=== PATIENT | male | born 1955 | race Caucasian/White ===

== ENCOUNTER 2019-03-14 04:37 | Emergency (ER) | payer MEDICARE, SELFPAY ==
[2019-03-14 04:40] VITALS: BP 164/108; PULSE 74; RESP 22; TEMP 36.6; O2SAT 95; BMI 30.9
--- NOTE | 2019-03-14 05:00 | W.ED.EPISTAX ---
HPI - Epistaxis General: Chief complaint: General Medical Stated complaint: NOSE BLEED Time Seen by Provider: 03/14/19 04:46 History of Present Illness: MD complaint: epistaxis Location: left nostril Onset (ago): hour(s) Duration: constant Context: aspirin use Associated symptoms: Reports no associated symptoms; Deny fever(s), headache(s), sinus pain or vomiting Treatment prior to arrival: nose pinching Review of Systems Const: Denies: fever or chills Eyes: Denies: change in vision or blurry vision ENMT: Reports: nose bleeds; Denies: painful swallowing, swelling of lips/tongue, bleeding gums, dental pain, Change in hearing, post nasal drip or facial/sinus pain Card: Denies: chest pain, palpitations, irregular heart rhythm, edema, swelling of feet/ankles, shortness of breath on exertion or shortness of breath when lying down Resp: Denies: shortness of breath, productive cough, non-productive cough or wheezing GI: Denies: abdominal pain, nausea, vomiting, rectal pain, blood in stool or black tarry stool Neuro: Denies: headache, dizziness, vertigo, confusion or seizure-like activity Psych: Denies: anxiety, visual hallucinations or auditory hallucinations PFSH ED PFSH: Statuses (acute, chronic, etc) shown below reflect problem list status as previously entered and may not be historically accurate Social History Smoking and tobacco status: current every day smoker Physical Exam Const: COMMON NORMALS: alert GENERAL APPEARANCE: well developed ORIENTATION/CONSCIOUSNESS: Yes awake, Yes oriented to person, Yes oriented to place and Yes oriented to time HENMT: COMMON NORMALS: normocephalic, external ears normal, external nose normal and moist oral mucous membranes HEAD & SCALP: normocephalic; no scalp tenderness FACE & SINUS: normal facial exam NOSE: external nose normal and epistaxis on the left; nasal discharge EXTERNAL EAR: Yes external ears normal MOUTH: tongue normal TEETH & GINGIVA: no abnormal tooth and associated gingiva THROAT: posterior oropharynx normal; no peritonsillar mass Eye: COMMON NORMALS: PERRL, EOMs intact bilaterally and conjunctivae normal EYELID: eyelids normal CONJUNCTIVA: Yes conjunctivae normal PUPIL: Yes PERRL Chest: COMMONS NORMALS: inspection of chest normal CHEST: Yes symmetrical chest wall rise and No tenderness Resp: COMMON NORMALS: clear to auscultation bilaterally EFFORT & INSPECTION: No tachypneic, No respiratory distress, No retractions, No uses accessory muscles and No tracheal deviation AUSCULTATION: clear to auscultation bilaterally, no rhonchi, no wheezes and lung sounds not diminished Cardio: COMMON NORMALS: negative for regular rate and negative for regular rhythm RATE: abnormal rate RHYTHM: abnormal rhythm and abnormal rhythm irregularly irregular HEART SOUNDS: no murmurs PERIPHERAL PULSES: radial pulses present : COMMON NORMALS: Yes no CVA tenderness BLADDER/KIDNEY EXAM: Yes no CVA tenderness Back/Pelvis: COMMON NORMALS: no CVA tenderness PELVIS: Yes no pain with anterior-posterior compression and Yes no pain with lateral compression Neuro: SENSORIUM/ORIENTATION: Yes alert, Yes oriented to person, Yes oriented to place and Yes oriented to time Psych: COMMON NORMALS: mental status grossly normal and speech normal SPEECH: Yes normal speech Skin: COMMON NORMALS: no rashes or lesions noted GENERAL SKIN EXAM: no rashes or lesions noted Course ED course: 63-year-old male with a nosebleed. He presents hypertensive, and bleeding from the left nare. Afrin, and aggressive pressure, have stopped the bleeding. On exam, he was found to have an irregular heartbeat. He is on the monitor now, showing atrial fibrillation. His rate is controlled. Obviously he is not a candidate for anticoagulation at this point. He will go home to follow-up as an outpatient regarding further work-up of his atrial fibrillation. Vital Signs: Vital signs: Vital Signs Temperature 97.8 F 03/14/19 04:40 Pulse Rate 70 03/14/19 05:43 Respiratory Rate 16 03/14/19 05:43 Blood Pressure 135/85 03/14/19 05:43 Pulse Oximetry 90 03/14/19 05:43 MDM - Epistaxis Lab Data: Labs: Lab Results 03/14/19 03/14/19 03/14/19 Range/Units 06:14 06:14 06:14 WBC 17.7 H (4.0-10.0) 10^3/ uL RBC 5.61 H (4.1-5.3) 10^6/u L Hgb 17.7 H (11.7-16.6) g/dL Hct 52.0 (42.0-52.0) % MCV 92.7 (80-94) fL MCH 31.6 (28.0-34.0) pg MCHC 34.0 (30.0-36.0) g/dL RDW 13.2 (12.1-15.1) % Plt Count 338 (130-400) 10^3/c mm MPV 9.2 (7.4-10.4) fL Neut % (Auto) 78.3 % Lymph % (Auto) 12.3 % [place] % (Auto) 8.3 % Eos % (Auto) 0.3 % Baso % (Auto) 0.4 % Neut # (Auto) 13.9 H (1.8-7.7) 10^3/u L Lymph # (Auto) 2.2 (0.8-4.8) 10^3/u L [place] # (Auto) 1.5 H (0.2-0.9) 10^3/u L Eos # (Auto) 0.1 (0.0-0.8) 10^3/u L Baso # (Auto) 0.1 (0.0-0.1) 10^3/u L Nucleated RBC % (a uto) 0 % Nucleated RBCs # 0.0 /100WBC PT 14.20 H (10.5-13.3) SECO NDS INR 1.07 (0.8-1.2) APTT 25.1 (23.9-36.7) SECO NDS Sodium 138 (136-145) mmol/L Potassium 3.5 (3.5-5.1) mmol/L Chloride 102 (98-107) mmol/L Carbon Dioxide 24 (22-29) mmol/L Anion Gap 15.5 (5-19) BUN 13 (8-23) mg/dL Creatinine 0.6 L (0.7-1.2) mg/dL GFR Calculation 135.2 H (90-130) mL/min Glucose 117 H (74-106) mg/dL Calcium 9.5 (8.8-10.2) mg/Dl Troponin T Baselin e (0-15) ng/mL 03/14/19 Range/Units 06:14 WBC (4.0-10.0) 10^3/ uL RBC (4.1-5.3) 10^6/u L Hgb (11.7-16.6) g/dL Hct (42.0-52.0) % MCV (80-94) fL MCH (28.0-34.0) pg MCHC (30.0-36.0) g/dL RDW (12.1-15.1) % Plt Count (130-400) 10^3/c mm MPV (7.4-10.4) fL Neut % (Auto) % Lymph % (Auto) % [place] % (Auto) % Eos % (Auto) % Baso % (Auto) % Neut # (Auto) (1.8-7.7) 10^3/u L Lymph # (Auto) (0.8-4.8) 10^3/u L [place] # (Auto) (0.2-0.9) 10^3/u L Eos # (Auto) (0.0-0.8) 10^3/u L Baso # (Auto) (0.0-0.1) 10^3/u L Nucleated RBC % (a uto) % Nucleated RBCs # /100WBC PT (10.5-13.3) SECO NDS INR (0.8-1.2) APTT (23.9-36.7) SECO NDS Sodium (136-145) mmol/L Potassium (3.5-5.1) mmol/L Chloride (98-107) mmol/L Carbon Dioxide (22-29) mmol/L Anion Gap (5-19) BUN (8-23) mg/dL Creatinine (0.7-1.2) mg/dL GFR Calculation (90-130) mL/min Glucose (74-106) mg/dL Calcium (8.8-10.2) mg/Dl Troponin T Baselin e 9 (0-15) ng/mL Discharge Plan Discharge Patient Disposition: Home, Self-Care Clinical Impression: Acute anterior epistaxis Atrial fibrillation Qualifiers: Atrial fibrillation type: unspecified Qualified Code(s): I48.91 - Unspecified atrial fibrillation Condition: Stable Prescriptions: No Action sertraline 100 mg Tablet 100 mg PO DAILY RF: 0 amlodipine 5 mg Tablet 5 mg PO DAILY RF: 0 telmisartan 80 mg Tablet 80 mg PO DAILY RF: 0 hydrochlorothiazide 12.5 mg Capsule 12.5 mg PO DAILY RF: 0 lovastatin 20 mg Tablet 20 mg PO QPM RF: 0 omeprazole 20 mg Tablet,Delayed Release (Dr/Ec) 20 mg PO DAILY RF: 0 Adult Low Dose Aspirin 81 mg Tablet,Delayed Release (Dr/Ec) 81 mg PO DAILY RF: 0 Discharge Orders: Discharge Order (Routine); Ordered 03/14/19 Ordered By: Casey Soni Referrals: Zach Doss NP [Primary Care Provider] - Discharge Diet: Usual diet Discharge Activity: Increase activity as tolerated Patient Instructions: Atrial Fibrillation (ED), Epistaxis (ED) Activity Restrictions/Additional Instructions: Check your blood pressure often to make sure it is staying controlled. Follow-up with your physician regarding your irregular heartbeat. A further work-up is needed. Humidifier while sleeping may help reduce the risk of nosebleeding. Return for repeated episodes of nosebleeding, chest discomfort, palpitations, other concerning symptoms. Stop your aspirin for now. Coding Level of Care Code ED Foam Charger for Rhina Patel
--- NOTE | 2019-03-14 05:02 | PC.NURSE ---
Pt states nose bleed started at 0300 and has not stopped. states several large blood clots have been expelled. Afrin @ bedside, physician administered. Suction used. Nose clamp applied but not effective.
[2019-03-14 05:43] VITALS: BP 135/85; PULSE 70; RESP 16; O2SAT 90
--- NOTE | 2019-03-14 06:02 | PC.NURSE ---
Per , pt has not been diagnosed with AFib in the past - physician notified, ekg obtained.
[2019-03-14 06:32] LABS: Basophils # 0.1 10^3/uL (0.0-0.1); Basophils % 0.4 %; Eosinophils # 0.1 10^3/uL (0.0-0.8); Eosinophils % 0.3 %; Hemoglobin 17.7 g/dL (11.7-16.6); Lymphocytes # 2.2 10^3/uL (0.8-4.8); Lymphocytes % 12.3 %; Mean Corpuscular Hemoglobin 31.6 pg (28.0-34.0); Mean Corpuscular Volume 92.7 fL (80-94); Mean Platelet Volume 9.2 fL (7.4-10.4); Monocytes # 1.5 10^3/uL (0.2-0.9); Monocytes % 8.3 %; Neutrophils # 13.9 10^3/uL (1.8-7.7); Neutrophils % 78.3 %; Nucleated Red Blood Cells % 0 %; Platelet Count 338 10^3/cmm (130-400); Red Blood Count 5.61 10^6/uL (4.1-5.3); Red Cell Distribution Width 13.2 % (12.1-15.1); White Blood Count 17.7 10^3/uL (4.0-10.0)
[2019-03-14 06:41] LABS: INR 1.07 (0.8-1.2)
[2019-03-14 06:42] LABS: Partial Thromboplastin Time 25.1 SECONDS (23.9-36.7)
[2019-03-14] MEDS: oxymetazoline 0.05% Nasal Spray 15 mL 2 SPRAY NOSTRIL-B (06:42)
[2019-03-14 06:47] LABS: Anion Gap 15.5 (5-19); Blood Urea Nitrogen 13 mg/dL (8-23); Calcium 9.5 mg/Dl (8.8-10.2); Carbon Dioxide 24 mmol/L (22-29); Chloride 102 mmol/L (98-107); Glomerular Filtration Rate 135.2 mL/min (90-130); Glucose 117 mg/dL (74-106); Potassium 3.5 mmol/L (3.5-5.1); Sodium 138 mmol/L (136-145); Troponin(5th) Baseline 9 ng/mL (0-15)
[2019-03-14 07:05] VITALS: BP 121/94; PULSE 67; RESP 15; O2SAT 94
--- NOTE | 2019-03-14 07:47 | ECG_ITS ---
Measurements Intervals [place] Rate: 73 P: VT: 0 QRS: -40 QRSD: 92 T: 17 QT: 404 QTc: 447 ATRIAL FIBRILLATION WITH VENTRICULAR PREMATURE COMPLEXES LOW QRS VOLTAGE IN PRECORDIAL LEADS [QRS DEFLECTION < 1.0 mV IN CHEST LEADS] INFERIOR MYOCARDIAL INFARCTION [40+ ms Q WAVE AND/OR ST/T ABNORMALITY IN II/aVF], PROBABLY OLD WITH POSTERIOR EXTENSION [PROMIN No previous ECG available for comparison Electronically Signed On 03-14-2019 19:31:39 LEAD PRESSER by Myke Chen M.D. [email or web address]
== END 2019-03-14 07:06 | disposition home or self-care (01) ==
PROVIDERS: Emergency Provider Emergency Medicine; PCP Nurse Practitioner Family
DX: R04.0 Epistaxis (principal); I48.91 Unspecified atrial fibrillation; Z79.82 Long term (current) use of aspirin; F17.210 Nicotine dependence, cigarettes, uncomplicated
CPT/HCPCS: 36415; 80048; 84484; 85025; 85610; 85730; 93005; 99282

== ENCOUNTER 2019-03-18 12:51 | Outpatient (CLI) | payer MEDICARE, SELFPAY ==
--- NOTE | 2019-03-18 12:57 | XR_ITS ---
WS: [id number] CHEST 2 VIEWS HISTORY: BRONCHITIS ACUTE, COUGH COMPARISON: None available. Lungs: Mild hyperexpansion from emphysema. No pneumonia. Normal vasculature. No pleural effusion or p neumothorax. Cardiac size: Normal. Mediastinum/Aorta: Normal mediastinum. Bones: Normal. XR/XR chest 2V* [id number] IMPRESSION: Chronic emphysema. No acute cardiopulmonary disease.
== END 2019-03-18 12:52 | disposition home or self-care (01) ==
PROVIDERS: PCP Nurse Practitioner Family; Visit Provider Nurse Practitioner Family
DX: J43.9 Emphysema, unspecified (principal); J20.9 Acute bronchitis, unspecified; R05 Cough
CPT/HCPCS: 71046

== ENCOUNTER 2019-03-30 13:55 | Outpatient (CLI) | payer MEDICARE, SELFPAY ==
--- NOTE | 2019-03-30 14:02 | USCV_ITS ---
Zach Croft Age: 63 Gender: M : 1955 Exam Date: 03/30/2019 14:18 Ordering Phys: Zach Doss NP Technologist: Janeth Joy [place] [facility] [place]IB BP: 137 / 94 HR: 70 Rhythm: Atrial fibrillation Technical Quality: Adequate MEASUREMENTS (Male / Female) Normal Values 2D ECHO LV Diastolic Diameter PLAX 6.0 cm 4.2 - 5.9 / 3.9 - 5.3 cm LV Systolic Diameter PLAX 4.7 cm LV Chamber Size 5.3 cm IVS Diastolic Thickness 1.2 cm 0.6 - 1.0 / 0.6 - 0.9 cm IVS Systolic Thickness 1.6 cm LVPW Diastolic Thickness 0.9 cm 0.6 - 1.0 / 0.6 - 0.9 cm LVPW Systolic Thickness 1.9 cm RV Chamber Size 3.8 cm LVOT Diameter 2.0 cm LV Ejection Fraction 2D Teich 42.9 % LV Ejection Fraction MOD 2C 52.8 % LV Ejection Fraction 2C AL 52.7 % LA Diameter 5.2 cm LA Width 3.9 cm LA Height 5.8 cm RA Width 4.1 cm RA Height 5.7 cm M-MODE LV Diastolic Diameter MM 5.9 cm 4.2 - 5.9 / 3.9 - 5.3 cm LV Systolic Diameter MM 4.3 cm LV Ejection Fraction MM Teich 52.4 % IVS Diastolic Thickness MM 1.3 cm 0.6 - 1.0 / 0.6 - 0.9 cm IVS Systolic Thickness MM 1.4 cm LVPW Diastolic Thickness MM 0.7 cm 0.6 - 1.0 / 0.6 - 0.9 cm LVPW Systolic Thickness MM 1.1 cm Aortic Annulus Diameter 3.6 cm LA Ao Ratio MM 1.5 MV E Point Septal Separation 1.8 cm DOPPLER AV Peak Velocity 118.0 cm/s LVOT Peak Velocity 91.0 cm/s AV Area Cont Eq vti 2.5 cm squared AV Area Cont Eq pk 2.5 cm squared MV Area PHT 5.0 cm squared MV E' Velocity 6.0 cm/s Mitral E to MV E' Ratio 9.8 Mitral E to LV E' Lateral Ratio 14.9 Mitral E to LV E' Septal Ratio 7.4 TR Peak Velocity 195.6 cm/s TR Peak Gradient 15.3 mmHg TR Mean Velocity 148.0 cm/s TR Mean Gradient 9.6 mmHg TR Velocity Time Integral 47.5 cm TV Peak E Velocity 87.0 cm/s Right Atrial Pressure 3.0 mmHg Pulmonary Artery Systolic Pressu 18.3 mmHg PV Peak Velocity 55.0 cm/s FINDINGS Left Ventricle Normal left ventricular size and systolic function, EF 55 %. No regional wall motion abnormalities. Right Ventricle Normal right ventricular size and systolic function. Right Atrium Mildly increased right atrial size. Left Atrium Mildly increased left atrial size. Mitral Valve Thickened mitral valve. Trace mitral valve regurgitation. Aortic Valve Thickened aortic valve. Tricuspid Valve Mild tricuspid valve regurgitation. Pulmonic Valve Not visualized well Pericardium Normal pericardium without effusion. Aorta Normal ascending aorta dimension. CONCLUSIONS Normal left ventricular size and systolic function, EF 55 %. No regional wall motion abnormalities. Thickened mitral valve. Trace mitral valve regurgitation. Mild biatrial enlargement. Thickened aortic valve. Mild tricuspid valve regurgitation. Normal pulmonary artery peak systolic pressure. There is no pericardial effusion. There are no intracardiac masses. No previous study is available for comparison. Dr Myke Chen MD FACC (Electronically Signed) Final Date: 30 March 2019 18:19 S
== END 2019-03-30 13:56 | disposition home or self-care (01) ==
PROVIDERS: Family Provider Nurse Practitioner Family; Visit Provider Nurse Practitioner Family
DX: I05.9 Rheumatic mitral valve disease, unspecified (principal); I35.8 Other nonrheumatic aortic valve disorders; I07.1 Rheumatic tricuspid insufficiency; I48.91 Unspecified atrial fibrillation; I10 Essential (primary) hypertension
CPT/HCPCS: 93306

== ENCOUNTER 2020-12-20 11:09 | Emergency (ER) | payer MEDICARE, SELFPAY ==
[2020-12-20 11:19] VITALS: BP 136/93; PULSE 93; RESP 16; TEMP 36.6; O2SAT 98
--- NOTE | 2020-12-20 11:35 | ED_ITS ---
HPI - General Adult General: Chief complaint: General Medical Stated complaint: Nose Bleed Time Seen by Provider: 12/20/20 11:22 History of Present Illness: HPI narrative: 65-year-old male with a history of A. fib on Eliquis presents emergency room with complaints of 3 days of intermittent right-sided nosebleed. Patient says that he has applied pressure and attempted to stop the bleeding with paper plug in the nose however has noted 3 episodes of intermittent bleeding. Most recently, patient report ongoing bleeding since 4 AM this morning. Patient denies any lightheadedness, chest pain, shortness breath, abdominal complaints or complaints at this time. Denies any recent instrumentation in the nose or trauma. Onset: 3 days ago Duration: intermittently every 4 hrs Location:home Severity: moderate Review of Systems Narrative: Constitutional: No fever, no chills. HEENT: No vision changes, +R sided nose bleed CV: No chest pain, no palpitations PULM: no cough, no dyspnea. GI: No abdominal pain, no N/V/D. : No dysuria MSKEL: No muscle pain SKIN: No new rashes, no lesions. NEURO: No headache, no focal weakness. HEME: No visible bruises PSYCH: Normal mood PFSH ED PFSH: Medical History (Updated 12/20/20 @ 11:40 by Miranda Beth MD) Atrial fibrillation by electrocardiogram Hyperlipidemia Hypertension Family History Other Hypertension Social History Smoking and tobacco status: current every day smoker Alcohol intake: never Physical Exam Narrative: EXAM NARRATIVE: Head: Atraumatic Eyes: PERRL, conjunctiva without injection ENT: Mucous membrane moist, +dry blood in the R nare/no active source of bleeding currently upon removal of the plug NECK: Supple, ROM intact LUNGS: LCTAB, no crackles/rhonchi CV: RRR ABDOMEN: Soft, nontender in all quadrants EXTREMITY: Normal ROM SKIN: No rash or erythema NEURO: Awake and alert, no focal motor deficits PSYCH: Normal mood and affect Course Vital Signs: Vital signs: Vital Signs Temperature 98.2 F 12/20/20 12:05 Pulse Rate 90 12/20/20 12:05 Respiratory Rate 16 12/20/20 12:05 Blood Pressure 155/100 12/20/20 12:05 Pulse Oximetry 95 12/20/20 12:05 MDM - General Adult MDM Narrative: Medical decision making narrative: 65-year-old male presenting to the emergency room with concerns for intermittent nosebleed. On exam, patient is hemodynamically stable with noted dried blood in the right nare. Patient is not actively bleeding currently. Afrin and 1% lidocaine w/ epi plug were applied to the affected area. No signs of active bleeding currently. Disposition: Discharge. Patient counseled regarding diagnostic impression, treatment plan. Patient given ED strict return precautions to return for continuation, worsening, or development of new symptoms. Instructed to f/u w/ PCP regarding symptoms today. Patient verbalized understanding. Discharge Plan Discharge Patient Disposition: Home Clinical Impression: Epistaxis Condition: Stable Prescriptions: No Action omega-3 fatty acids 1,000 mg capsule 1,000 mg PO DAILY RF: 0 garlic 1,000 mg capsule 1,000 mg PO DAILY RF: 0 Eliquis 5 mg tablet 5 mg PO BID 30 Days Qty: 180 RF: 3 sertraline 100 mg Tablet 100 mg PO DAILY RF: 0 amlodipine 5 mg Tablet 5 mg PO DAILY RF: 0 telmisartan 80 mg Tablet 80 mg PO DAILY RF: 0 hydrochlorothiazide 12.5 mg Capsule 12.5 mg PO DAILY RF: 0 lovastatin 20 mg Tablet 20 mg PO QPM RF: 0 omeprazole 20 mg Tablet,Delayed Release (Dr/Ec) 20 mg PO DAILY RF: 0 Adult Low Dose Aspirin 81 mg Tablet,Delayed Release (Dr/Ec) 81 mg PO DAILY RF: 0 Discharge Orders: Discharge ED (Routine); Ordered 12/20/20 Ordered By: Miranda Beth Referrals: Zach Doss NP [Primary Care Provider] - Discharge Diet: Advance as tolerated Discharge Activity: Resume usual activity Patient Instructions: Nosebleed (ED) Activity Restrictions/Additional Instructions: Come back to the emergency room if you notice any worsening bleed, fever/chills, inability control the bleeding, lightheadedness, shortness of breath, or any new or concerning complaints. Coding Level of Care Code ED Assistant Director Of Public Works for Rhina Patel
[2020-12-20 12:05] VITALS: BP 155/100; PULSE 90; RESP 16; TEMP 36.8; O2SAT 95
== END 2020-12-20 13:50 | disposition home or self-care (01) ==
PROVIDERS: Emergency Provider Emergency Medicine; PCP Nurse Practitioner Family
DX: R04.0 Epistaxis (principal); Z79.01 Long term (current) use of anticoagulants; Z79.82 Long term (current) use of aspirin; I10 Essential (primary) hypertension; E78.5 Hyperlipidemia, unspecified; F17.210 Nicotine dependence, cigarettes, uncomplicated
CPT/HCPCS: 99281

== ENCOUNTER 2021-12-12 11:32 | Outpatient (CLI) | payer MEDICARE, SELFPAY ==
--- NOTE | 2021-12-12 11:40 | XR_ITS ---
WS: [id number] Lumbar spine, AP, lateral, L5-S1 spot, both obliques, 12/12/2021 Clinical Data: BACK PAIN, LUMBAR WITH RADICULOPATHY Comparison: None. Findings: No compression fractures or subluxation is seen. Degenerative disc narrowing at all levels from T12-L 1 through L5-S1 is seen. There are abundant osteoarthritic spurs from T12 through S1. The transverse processes and SI joints are normal. The oblique images show no spondylolysis. XR/XR lumbar spine min 4V [id number] Impression: 1. Multilevel degenerative disc narrowing. 2. Multilevel osteoarthritic spurring. 3. Negative for spondylolysis or spondylolisthesis.
--- NOTE | 2021-12-12 11:50 | XR_ITS ---
WS: [id number] Right hip, AP and frog-leg views, 12/12/2021 Clinical Data: HIP PAIN, RIGHT Comparison: None. Findings: No fractures or dislocations are seen. The right hip joint shows sclerosis of the acetabulum with a s pur of the medial aspect of the right femoral head. There is an acetabular lip. There are cystic medina ges of the right femoral head but no fragmentation.. The soft tissues are not remarkable. The adjacen t pelvis is normal. XR/XR hip RT 2-3V wo/w pel* [id number] Impression: Moderate osteoarthritis of right hip. Tonnis classification: grade 2: small cysts in femoral head/acetabulum or moder ate joint space narrowing or moderate loss of head sphericity
== END 2021-12-12 11:33 | disposition home or self-care (01) ==
LOC: RAD 11:34
PROVIDERS: PCP Nurse Practitioner Family; Visit Provider Nurse Practitioner Family
DX: M54.16 Radiculopathy, lumbar region (principal); M16.11 Unilateral primary osteoarthritis, right hip; M54.50 Low back pain, unspecified
CPT/HCPCS: 72110; 73502

== ENCOUNTER → 2022-01-08 08:55 | Outpatient (BNVA) | payer MEDICARE, SELFPAY | PROVIDERS: PCP Nurse Practitioner Family; Referring Provider Internal Medicine; Visit Provider Orthopaedic Surgery | DX: M16.11 Unilateral primary osteoarthritis, right hip (principal) | CPT/HCPCS: 99204 ==

== ENCOUNTER 2022-09-29 15:03 | Outpatient (CLI) | payer MEDICARE, SELFPAY ==
--- NOTE | 2022-09-29 15:16 | MR_ITS ---
WS: [id number] EXAMINATION: MR hip RT wo con* [id number] ORDER DATE: 09/29/2022 3:17 PM COMPARISON: None. HISTORY: R HIP PAIN CONTRAST: None. TECHNIQUE: Coronal STIR of the Pelvis. Coronal proton density, coronal T1, axial T2 fat sat, axial T1 , sagittal T2 fat sat, and sagittal T1 performed of the hip. FINDINGS: Moderate to advanced arthritis RIGHT hip with subchondral cystic change in the femoral head and aceta bulum. Hypertrophic changes about the femoral neck. No acute fractures. No evidence of avascular necr osis. Proximal femoral shaft appears normal. Hypertrophic spurring about the acetabulum. Small joint effusion. Visualized RIGHT pubic rami appear normal. Small fat-containing RIGHT inguinal hernia. MR/MR hip RT wo con* [id number] IMPRESSION: 1. Advanced degenerative arthritis RIGHT hip with subchondral cystic change an d edema in the femoral head. 2. Hypertrophic changes about the acetabulum and femoral neck. No acute fractu res. 3. Small joint effusion. 4. Small fat-containing RIGHT inguinal hernia.
--- NOTE | 2022-09-29 15:16 | MR_ITS ---
WS: [id number] EXAMINATION: MR hip LT wo con* [id number] ORDER DATE: 09/29/2022 3:17 PM COMPARISON: None. HISTORY: L HIP PAIN CONTRAST: None. TECHNIQUE: Coronal STIR of the Pelvis. Coronal proton density, coronal T1, axial T2 fat sat, axial T1 , sagittal T2 fat sat, and sagittal T1 performed of the hip. FINDINGS: Moderate to advanced arthritis both hips with subchondral cystic change and edema in the femoral head s. Joint space narrowing LEFT hip. No evidence of avascular necrosis. Joint space narrowing with subc hondral cystic change involving the LEFT femoral head and adjacent acetabulum. Mild edema in the femo ral head. No acute fractures. Proximal femoral shaft appears intact. Normal bone marrow signal in the bony pelvis and sacrum. Norm al visualized pubic rami. No sacral insufficiency fractures. Fat-containing LEFT inguinal hernia. A f ew incidental LEFT inguinal lymph nodes. MR/MR hip LT wo con* [id number] IMPRESSION: 1. Moderate to advanced osteoarthritis LEFT hip with subchondral cystic change and mild edema in the femoral head. 2. No evidence of avascular necrosis or femoral head collapse. Hypertrophic ch anges about the femoral neck. 3. Normal bone marrow signal in the bony pelvis and sacrum. 4. Fat-containing LEFT inguinal hernia.
== END 2022-09-29 15:04 | disposition home or self-care (01) ==
PROVIDERS: PCP Nurse Practitioner Family; Visit Provider Nurse Practitioner Family
DX: M25.552 Pain in left hip (principal); M25.551 Pain in right hip
CPT/HCPCS: 73721

== ENCOUNTER 2023-03-11 09:03 | Outpatient (CLI) | payer MEDICARE, SELFPAY ==
--- NOTE | 2023-03-11 09:12 | CT_ITS ---
WS: [id number] LDCT LUNG CANCER SCREENING TECHNIQUE: Noncontrast CT of the chest with coronal and sagittal reformatted images. CLINICAL INFORMATION: NICOTINE DEPENDENCE, CIGARETTES COMPARISON: None. DLP: 94.89 mGy.cm DIvol: Mean CTDIvol: 1.90 (mGy) All CT scans at [facility] use at least one of these dose optimization techniques: automat ed exposure control; mA and/or kV adjustment per patient size (includes targeted exams where dose is matched to clinical indication); or iterative reconstruction. FINDINGS: Moderate to advanced chronic emphysematous changes. Tiny noncalcified nodule RIGHT middle l obe. Nodularity along the RIGHT minor fissure. Bibasilar atelectasis. Tree-in-bud nodularity in the R IGHT middle lobe likely inflammatory. Slight bibasilar atelectasis. Normal caliber thoracic aorta. Coronary calcification. No mediastinal or hilar lymphadenopathy. No ax illary lymphadenopathy. Adrenal glands are normal. Tiny esophageal hiatal hernia. Small LEFT renal cy st. Moderate thoracic kyphosis. Loose bodies in the calcified subcoracoid bursa. IMPRESSION: CT/CT lung screening [id number] LUNG-RADS: 2-Benign Appearance or Behavior FOLLOW UP: 12 Month: Continue annual screening with LDCT
== END 2023-03-11 09:04 | disposition home or self-care (01) ==
LOC: RAD 09:04
PROVIDERS: PCP Nurse Practitioner Family; Visit Provider Family Medicine
DX: Z12.2 Encounter for screening for malignant neoplasm of respiratory organs (principal); F17.210 Nicotine dependence, cigarettes, uncomplicated
CPT/HCPCS: 71271

== ENCOUNTER → 2023-03-12 14:59 | Outpatient (BNVA) | payer MEDICARE, SELFPAY | PROVIDERS: PCP Nurse Practitioner Family; Visit Provider Internal Medicine Cardiovascular Disease | DX: R07.9 Chest pain, unspecified (principal); M16.11 Unilateral primary osteoarthritis, right hip; F17.200 Nicotine dependence, unspecified, uncomplicated; R94.31 Abnormal electrocardiogram [ECG] [EKG] | CPT/HCPCS: 93005; 99204 ==

== ENCOUNTER → 2023-09-14 15:16 | Outpatient (BNVA) | payer MEDICARE, SELFPAY | PROVIDERS: PCP Nurse Practitioner Family; Visit Provider Internal Medicine Cardiovascular Disease | DX: I48.91 Unspecified atrial fibrillation (principal); Z79.01 Long term (current) use of anticoagulants; I10 Essential (primary) hypertension; E78.2 Mixed hyperlipidemia; M16.11 Unilateral primary osteoarthritis, right hip; Z72.0 Tobacco use | CPT/HCPCS: 99214 ==

== ENCOUNTER → 2024-04-05 09:41 | Outpatient (BNVA) | payer MEDICARE, SELFPAY | PROVIDERS: PCP Nurse Practitioner Family; Visit Provider Nurse Practitioner Family | DX: I48.91 Unspecified atrial fibrillation (principal); I10 Essential (primary) hypertension; E78.2 Mixed hyperlipidemia; F17.200 Nicotine dependence, unspecified, uncomplicated; Z79.01 Long term (current) use of anticoagulants | CPT/HCPCS: 99214 ==

== ENCOUNTER → 2024-07-21 14:53 | Outpatient (BNVA) | payer MEDICARE, SELFPAY | PROVIDERS: PCP Nurse Practitioner Family; Referring Provider Family Medicine; Visit Provider Nurse Practitioner Family | DX: D48.5 Neoplasm of uncertain behavior of skin (principal); L57.8 Other skin changes due to chronic exposure to nonionizing radiation; L82.1 Other seborrheic keratosis; D36.14 Benign neoplasm of peripheral nerves and autonomic nervous system of thorax; L81.4 Other melanin hyperpigmentation; X32.XXXA Exposure to sunlight, initial encounter; L57.0 Actinic keratosis | CPT/HCPCS: 11102; 17004; 99203 ==

== ENCOUNTER → 2024-08-17 08:01 | Outpatient (BNVA) | payer MEDICARE, SELFPAY | PROVIDERS: PCP Nurse Practitioner Family; Visit Provider Dermatology | DX: C44.42 Squamous cell carcinoma of skin of scalp and neck (principal); C44.319 Basal cell carcinoma of skin of other parts of face; C44.619 Basal cell carcinoma of skin of left upper limb, including shoulder; D48.5 Neoplasm of uncertain behavior of skin; L57.0 Actinic keratosis | CPT/HCPCS: 11102; 11603; 12032; 17000; 99213 ==

== ENCOUNTER → 2024-09-21 10:47 | Outpatient (BNVA) | payer MEDICARE, SELFPAY | PROVIDERS: PCP Nurse Practitioner Family; Visit Provider Dermatology | DX: D04.4 Carcinoma in situ of skin of scalp and neck (principal); C44.91 Basal cell carcinoma of skin, unspecified; D36.11 Benign neoplasm of peripheral nerves and autonomic nervous system of face, head, and neck | CPT/HCPCS: 99213 ==

== ENCOUNTER → 2024-10-10 10:23 | Outpatient (BNVA) | payer MEDICARE, SELFPAY | PROVIDERS: PCP Nurse Practitioner Family; Visit Provider Internal Medicine Cardiovascular Disease | DX: I48.91 Unspecified atrial fibrillation (principal); I10 Essential (primary) hypertension; E78.2 Mixed hyperlipidemia; M16.11 Unilateral primary osteoarthritis, right hip; F17.210 Nicotine dependence, cigarettes, uncomplicated; Z79.01 Long term (current) use of anticoagulants | CPT/HCPCS: 99214 ==

== ENCOUNTER → 2024-10-11 07:58 | Outpatient (BNVA) | payer MEDICARE, SELFPAY | PROVIDERS: PCP Nurse Practitioner Family; Visit Provider Dermatology | DX: C44.42 Squamous cell carcinoma of skin of scalp and neck (principal); C44.41 Basal cell carcinoma of skin of scalp and neck; C44.319 Basal cell carcinoma of skin of other parts of face | CPT/HCPCS: 13132; 17311; 99213 ==

== ENCOUNTER → 2025-01-02 14:12 | Outpatient (BNVA) | payer MEDICARE, SELFPAY | PROVIDERS: PCP Nurse Practitioner Family; Visit Provider Nurse Practitioner Family | DX: L57.8 Other skin changes due to chronic exposure to nonionizing radiation (principal); L81.4 Other melanin hyperpigmentation; X32.XXXA Exposure to sunlight, initial encounter; L57.0 Actinic keratosis; Z08 Encounter for follow-up examination after completed treatment for malignant neoplasm; Z85.828 Personal history of other malignant neoplasm of skin; D48.5 Neoplasm of uncertain behavior of skin | CPT/HCPCS: 11102; 17000; 99213 ==